=== PATIENT | female | born 1935 | race Caucasian/White ===

== ENCOUNTER 2017-10-31 07:51 | Inpatient (IN) | payer MEDICARE ==
[2017-10-31] VITALS (17 sets, daily range): BP systolic 91–141
[~2017-10-31] VITALS: Ht 157.5 cm; Wt 58.5 kg
[~2017-10-31 07:51] MED LIST: ETOMIDATE 20 MG/ 10 ML VIAL (AMIDATE) IVP ONE; VECURONIUM BROMIDE 10 MG/VIAL (NORCURON) IV ONE
[2017-10-31] MEDS ORDERED: DILTIAZEM HCL 25 MG/5 ML VIAL IVP ONE (08:00)
[2017-10-31] MEDS ORDERED: NS 500 ML IV ONE (08:00)
[2017-10-31] MEDS ORDERED: IPRATROPIUM/ALBUTEROL SULFATE 3 ML AMPUL.NEB INH ONE (08:00)
[2017-10-31] MEDS ORDERED: DILTIAZEM HCL 125 MG/25 ML VIAL IV ONE ×2 (08:07→08:57)
[2017-10-31 08:14] LABS: BASOPHILS # (AUTO) 0.3 K/uL (0.0-0.2); BASOPHILS % (AUTO) 1.5 % (0.0-2.0); EOSINOPHILS # (AUTO) 0.3 K/uL (0.0-0.4); EOSINOPHILS % (AUTO) 1.3 % (0.0-4.0); HEMATOCRIT 39.7 % (36-48); HEMOGLOBIN 13.2 g/dL (12.0-16.0); LYMPHOCYTES % (AUTO) 18.6 % (20.5-51.5); MEAN CORPUSCULAR HEMOGLOBIN 28 pg (27-31); MEAN CORPUSCULAR HGB CONC 33 % (32-36); MEAN CORPUSCULAR VOLUME 85 fL (79.0-98.0); MONOCYTES # (AUTO) 1.4 K/uL (0.0-1.0); MONOCYTES % (AUTO) 6.6 % (1.7-9.3); NEUTROPHILS # (AUTO) 15.2 K/uL (1.8-7.7); RED BLOOD CELL COUNT(AUTO) 4.69 MIL/uL (4.2-6.2); RED CELL DISTRIBUTION WIDTH 13.4 % (9.0-15.0); WHITE BLOOD COUNT (AUTO) 21.3 K/uL (4.8-10.8)
[2017-10-31] MEDS ORDERED: PROPOFOL DRIP 100 ML IV ONE ×2 (08:30→20:14)
[2017-10-31 08:31] LABS: PLATELET COUNT (AUTO) 315 K/uL (130-430)
[2017-10-31] MEDS ORDERED: MAGNESIUM SULFATE 1 GM/2 ML VIAL IVP ONE (08:45)
[2017-10-31] MEDS ORDERED: DILTIAZEM HCL 125 MG in D5W 100 ML IV ONE (08:45)
[2017-10-31] MEDS ORDERED: methylPREDNISolone SOD SUCC/PF 62.5 MG/ML VIAL IVP ONE (08:45)
[2017-10-31 08:46] LABS: PROTHROMBIN TIME 10.3 SECS (9.5-12.5)
[2017-10-31] MEDS ORDERED: MAGNESIUM SULFATE 50 ML IV ONE (08:57)
[2017-10-31 08:58] LABS: ANION GAP 13 (5-15); CALCIUM 8.9 mg/dL (8.4-11.0); CHLORIDE 103 mmol/L (98-107); CREATININE 1.07 mg/dL (0.55-1.30); POTASSIUM 3.6 mmol/L (3.5-5.1); SODIUM SERUM 137 mmol/L (136-145); UREA NITROGEN, BLOOD 22 mg/dL (8-21)
[2017-10-31 09:02] LABS: ALANINE AMINOTRANSFERASE 29 U/L (12-78); ALBUMIN 3.3 g/dL (3.4-4.8); ASPARTATE AMINOTRANSFERASE 20 U/L (10-37); TOTAL BILIRUBIN 0.4 mg/dL (0.0-1.0)
[2017-10-31 09:05] LABS: GLUCOSE 447 mg/dL (70-99)
[2017-10-31] MEDS ORDERED: LORazepam 2 MG/ML VIAL (FOR ER USE) ONE (09:05)
[2017-10-31] MEDS ORDERED: KETAMINE HCL 500 MG/10 ML VIAL ONE (09:11)
[2017-10-31] MEDS ORDERED: NACL 0.9% 1,000 ML IV ONE ×2 (09:15→09:30)
[2017-10-31] MEDS ORDERED: KETAMINE HCL 500 MG/10 ML VIAL IVP ONE (09:15)
[2017-10-31] MEDS ORDERED: LORazepam 2 MG/ML VIAL (FOR ER USE) IVP ONE (09:30)
[2017-10-31] MEDS ORDERED: INSULIN REGULAR, HUMAN 10 UNITS/0.1 ML INJ IVP ONE (09:45)
[2017-10-31] MEDS ORDERED: PIPERACILLIN/TAZOBACTAM 3.375 GM/VIAL (ZOSYN) IV ONE (10:40)
[2017-10-31] MEDS ORDERED: PIPERACILLIN/TAZO 3.375 GM in NS 50 ML IV ONE (10:45)
[2017-10-31] MEDS ORDERED: ENOXAPARIN SODIUM 40 MG/0.4 ML SYRINGE SUBCUT ONE (11:15)
[2017-10-31] MEDS ORDERED: PANTOPRAZOLE SODIUM 40 MG/VIAL (PROTONIX) IVP ONE (11:15)
[2017-10-31] MEDS: AZITHROMYCIN 500 MG in NS 250 ML IV SCH (11:42)
[2017-10-31 12:01] LABS: BILIRUBIN,URINE NEGATIVE (NEGATIVE); BLOOD, URINE NEGATIVE (NEGATIVE); CLARITY/URINE HAZY (CLEAR); COLOR,URINE YELLOW (YELLOW); GLUCOSE,URINE 3+ (NEGATIVE); KETONES,URINE NEGATIVE (NEGATIVE); LEUKOCYTE ESTERASE ,URINE NEGATIVE (NEGATIVE); NITRITE, URINE NEGATIVE (NEGATIVE); PH,URINE 6.5 (5.0-8.0); PROTEIN URINE 2+ (NEGATIVE)
[2017-10-31] MEDS: IPRATROPIUM BROM 0.5 MG/2.5 ML VIAL.NEB (ATROVENT) INH SCH ×2 (12:03→19:36)
[2017-10-31] MEDS: LevALBUTEROL HCL 1.25 MG/0.5 ML *CONC.* VIAL.NEB (XOPENEX CONC.) INH SCH ×2 (12:03→19:36)
[2017-10-31 12:11] LABS: BACTERIA,URINE MODERATE /HPF (None Seen); RBC,URINE 0-3 /HPF (0-3); WBC,URINE 0-3 /HPF (0-3)
[2017-10-31 12:12] LABS: MUCUS,URINE 1+ /LPF (None Seen)
[2017-10-31] MEDS ORDERED: NOREPINEPHRINE BITARTRATE 4 MG in NS 246 ML IV PRN (13:00)
[2017-10-31] MEDS ORDERED: SODIUM BICARBONATE 8.4% JECT 50 MEQ/50 ML SYRINGE IVP ONE (13:15)
[2017-10-31] MEDS: NACL 0.9% 1,000 ML IV SCH ×2 (13:31→23:01)
[2017-10-31] MEDS: methylPREDNISolone SOD SUCC/PF 62.5 MG/ML VIAL IVP SCH ×2 (14:19→21:33)
[2017-10-31] MEDS: LORazepam 2 MG/ML VIAL IVP PRN ×3 (16:01→23:47)
[2017-10-31] MEDS: INSULIN REGULAR, HUMAN 100 UNITS/ML, 10 ML VIAL (novoLIN R) SUBCUT PRN ×2 (17:24→20:48)
[2017-10-31] MEDS: PIPERACILLIN/TAZO 3.375/DEX-IS 50 ML IV SCH ×2 (17:58→23:02)
[2017-10-31] MEDS ORDERED: FUROSEMIDE 20 MG/2 ML VIAL IVP ONE (20:15)
[2017-10-31] MEDS: PROPOFOL DRIP 100 ML IV PRN (23:11)
[2017-11-01] VITALS (29 sets, daily range): BP systolic 84–147
[2017-11-01] MEDS ORDERED: DILTIAZEM HCL 25 MG/5 ML VIAL IVP SCH
[2017-11-01] MEDS: LevALBUTEROL HCL 1.25 MG/0.5 ML *CONC.* VIAL.NEB (XOPENEX CONC.) INH SCH ×4 (00:51→19:44)
[2017-11-01] MEDS: IPRATROPIUM BROM 0.5 MG/2.5 ML VIAL.NEB (ATROVENT) INH SCH ×4 (00:51→19:45)
[2017-11-01] MEDS ORDERED: CALC-439 PO (01:37)
[2017-11-01] MEDS ORDERED: LIP40 PO (01:37)
[2017-11-01] MEDS ORDERED: ALBMDI INH (01:37)
[2017-11-01] MEDS ORDERED: MELA3TAB37 PO (01:37)
[2017-11-01] MEDS ORDERED: CICL34.62 TP (01:37)
[2017-11-01] MEDS ORDERED: LOSA25TA3 PO ×2 (01:37→10:43)
[2017-11-01] MEDS ORDERED: HYDR25TA4 PO ×2 (01:37→10:43)
[2017-11-01] MEDS ORDERED: ASPI325T2 PO ×2 (01:37→10:43)
[2017-11-01] MEDS: PROPOFOL DRIP 100 ML IV PRN ×4 (03:54→23:09)
[2017-11-01] MEDS: LORazepam 2 MG/ML VIAL IVP PRN ×3 (05:13→10:43)
[2017-11-01] MEDS: methylPREDNISolone SOD SUCC/PF 62.5 MG/ML VIAL IVP SCH ×3 (05:14→22:15)
[2017-11-01] MEDS: PIPERACILLIN/TAZO 3.375/DEX-IS 50 ML IV SCH ×4 (05:14→23:05)
[2017-11-01] MEDS: INSULIN REGULAR, HUMAN 100 UNITS/ML, 10 ML VIAL (novoLIN R) SUBCUT PRN ×4 (05:24→20:56)
[2017-11-01 06:50] LABS: ALANINE AMINOTRANSFERASE 29 U/L (12-78); ALBUMIN 2.7 g/dL (3.4-4.8); ANION GAP 10 (5-15); ASPARTATE AMINOTRANSFERASE 19 U/L (10-37); CALCIUM 7.9 mg/dL (8.4-11.0); CHLORIDE 106 mmol/L (98-107); CREATININE 0.77 mg/dL (0.55-1.30); GLUCOSE 181 mg/dL (70-99); POTASSIUM 3.2 mmol/L (3.5-5.1); SODIUM SERUM 140 mmol/L (136-145); TOTAL BILIRUBIN 0.4 mg/dL (0.0-1.0); UREA NITROGEN, BLOOD 24 mg/dL (8-21)
[2017-11-01 06:53] LABS: HEMATOCRIT 31.9 % (36-48); HEMOGLOBIN 10.9 g/dL (12.0-16.0); LYMPHOCYTES # (AUTO) 1.2 K/uL (1.0-5.5); LYMPHOCYTES % (AUTO) 6.7 % (20.5-51.5); MEAN CORPUSCULAR HEMOGLOBIN 29 pg (27-31); MEAN CORPUSCULAR HGB CONC 34 % (32-36); MEAN CORPUSCULAR VOLUME 85 fL (79.0-98.0); MONOCYTES # (AUTO) 0.6 K/uL (0.0-1.0); MONOCYTES % (AUTO) 3.2 % (1.7-9.3); NEUTROPHILS # (AUTO) 16.4 K/uL (1.8-7.7); NEUTROPHILS % (AUTO) 90.1 % (40.0-70.0); PLATELET COUNT (AUTO) 204 K/uL (130-430); RED BLOOD CELL COUNT(AUTO) 3.76 MIL/uL (4.2-6.2); RED CELL DISTRIBUTION WIDTH 13.7 % (9.0-15.0); WHITE BLOOD COUNT (AUTO) 18.2 K/uL (4.8-10.8)
[2017-11-01] MEDS: ENOXAPARIN SODIUM 40 MG/0.4 ML SYRINGE SUBCUT SCH (08:36)
[2017-11-01] MEDS: NACL 0.9% 1,000 ML IV SCH (08:36)
[2017-11-01] MEDS: PANTOPRAZOLE SODIUM 40 MG/VIAL (PROTONIX) IVP SCH (08:37)
[2017-11-01] MEDS ORDERED: AMIODARONE HCL 200 MG TABLET PO SCH (09:00)
[2017-11-01] MEDS ORDERED: FUROSEMIDE 40 MG/4 ML VIAL IVP ONE (09:45)
[2017-11-01] MEDS ORDERED: POTASSIUM CHLORIDE 20 MEQ/PKT PACKET NG ONE (09:45)
[2017-11-01] MEDS ORDERED: CALC260T7 PO (10:43)
[2017-11-01] MEDS ORDERED: MULT PO (10:43)
[2017-11-01] MEDS: 0.45% NACL 1,000 ML IV SCH (11:14)
[2017-11-01] MEDS: AZITHROMYCIN 500 MG in NS 250 ML IV SCH (12:58)
[2017-11-01] MEDS: DILTIAZEM HCL 25 MG/5 ML VIAL IVP PRN ×2 (15:40→20:52)
[2017-11-01] MEDS ORDERED: AMIODARONE HCL 900 MG in D5W 482 ML IV SCH (16:15)
[2017-11-01] MEDS ORDERED: APIXABAN 2.5 MG TABLET PO ONE (17:00)
[2017-11-02] VITALS (32 sets, daily range): BP systolic 84–147
[2017-11-02] MEDS: IPRATROPIUM BROM 0.5 MG/2.5 ML VIAL.NEB (ATROVENT) INH SCH ×4 (00:54→19:15)
[2017-11-02] MEDS: LevALBUTEROL HCL 1.25 MG/0.5 ML *CONC.* VIAL.NEB (XOPENEX CONC.) INH SCH ×4 (00:54→19:15)
[2017-11-02] MEDS: 0.45% NACL 1,000 ML IV SCH ×3 (01:57→20:25)
[2017-11-02] MEDS: LORazepam 2 MG/ML VIAL IVP PRN ×4 (03:33→17:56)
[2017-11-02] MEDS: PROPOFOL DRIP 100 ML IV PRN ×2 (04:51→18:32)
[2017-11-02 05:53] LABS: BASOPHILS % (AUTO) 0.1 % (0.0-2.0); HEMATOCRIT 31.1 % (36-48); HEMOGLOBIN 10.4 g/dL (12.0-16.0); LYMPHOCYTES # (AUTO) 0.7 K/uL (1.0-5.5); LYMPHOCYTES % (AUTO) 3.5 % (20.5-51.5); MEAN CORPUSCULAR HEMOGLOBIN 29 pg (27-31); MEAN CORPUSCULAR HGB CONC 34 % (32-36); MEAN CORPUSCULAR VOLUME 85 fL (79.0-98.0); MONOCYTES # (AUTO) 0.6 K/uL (0.0-1.0); MONOCYTES % (AUTO) 2.9 % (1.7-9.3); NEUTROPHILS # (AUTO) 19.1 K/uL (1.8-7.7); NEUTROPHILS % (AUTO) 93.5 % (40.0-70.0); PLATELET COUNT (AUTO) 212 K/uL (130-430); RED BLOOD CELL COUNT(AUTO) 3.66 MIL/uL (4.2-6.2); RED CELL DISTRIBUTION WIDTH 14.2 % (9.0-15.0)
[2017-11-02 06:03] LABS: ANION GAP 9 (5-15); CHLORIDE 105 mmol/L (98-107); GLUCOSE 232 mg/dL (70-99); SODIUM SERUM 137 mmol/L (136-145); UREA NITROGEN, BLOOD 27 mg/dL (8-21)
[2017-11-02 06:11] LABS: ALANINE AMINOTRANSFERASE 26 U/L (12-78); ALBUMIN 2.6 g/dL (3.4-4.8); ASPARTATE AMINOTRANSFERASE 15 U/L (10-37); TOTAL BILIRUBIN 0.3 mg/dL (0.0-1.0)
[2017-11-02] MEDS: PIPERACILLIN/TAZO 3.375/DEX-IS 50 ML IV SCH ×4 (06:15→23:41)
[2017-11-02] MEDS: methylPREDNISolone SOD SUCC/PF 62.5 MG/ML VIAL IVP SCH ×3 (06:15→21:30)
[2017-11-02] MEDS: INSULIN REGULAR, HUMAN 100 UNITS/ML, 10 ML VIAL (novoLIN R) SUBCUT PRN ×4 (06:24→21:02)
[2017-11-02 06:53] LABS: WHITE BLOOD COUNT (AUTO) 20.4 K/uL (4.8-10.8)
[2017-11-02] MEDS: APIXABAN 2.5 MG TABLET PO SCH ×2 (07:59→20:14)
[2017-11-02] MEDS: ENOXAPARIN SODIUM 40 MG/0.4 ML SYRINGE SUBCUT SCH (07:59)
[2017-11-02] MEDS: PANTOPRAZOLE SODIUM 40 MG/VIAL (PROTONIX) IVP SCH (07:59)
[2017-11-02] MEDS ORDERED: KCL 20 mEq in 100 mL (PREMIX) 100 ML IV ONE (09:30)
[2017-11-02] MEDS ORDERED: FUROSEMIDE 40 MG/4 ML VIAL IVP ONE (09:45)
[2017-11-02] MEDS ORDERED: FUROSEMIDE 40 MG/4 ML VIAL ONE (09:50)
[2017-11-02] MEDS: AZITHROMYCIN 500 MG in NS 250 ML IV SCH (11:35)
[2017-11-02] MEDS ORDERED: AMIODARONE HCL 200 MG TABLET PO ONE (16:00)
[2017-11-02] MEDS: DILTIAZEM HCL 25 MG/5 ML VIAL IVP PRN (18:54)
[2017-11-02] MEDS ORDERED: AMIODARONE HCL 200 MG TABLET NG ONE (20:15)
[2017-11-02] MEDS ORDERED: AMIODARONE HCL 900 MG in D5W 482 ML IV SCH (21:15)
[2017-11-02] MEDS ORDERED: AMIODARONE HCL 900 MG/18 ML VIAL IV ONE (21:27)
[2017-11-03] VITALS (26 sets, daily range): BP systolic 88–143
[2017-11-03] MEDS: LevALBUTEROL HCL 1.25 MG/0.5 ML *CONC.* VIAL.NEB (XOPENEX CONC.) INH SCH ×4 (00:36→19:58)
[2017-11-03] MEDS: IPRATROPIUM BROM 0.5 MG/2.5 ML VIAL.NEB (ATROVENT) INH SCH ×4 (00:36→19:58)
[2017-11-03] MEDS: PROPOFOL DRIP 100 ML IV PRN (03:22)
[2017-11-03 06:03] LABS: BASOPHILS % (AUTO) 0.1 % (0.0-2.0); HEMATOCRIT 28.2 % (36-48); HEMOGLOBIN 9.3 g/dL (12.0-16.0); LYMPHOCYTES # (AUTO) 0.9 K/uL (1.0-5.5); LYMPHOCYTES % (AUTO) 4.3 % (20.5-51.5); MEAN CORPUSCULAR HEMOGLOBIN 28 pg (27-31); MEAN CORPUSCULAR HGB CONC 33 % (32-36); MEAN CORPUSCULAR VOLUME 85 fL (79.0-98.0); MONOCYTES % (AUTO) 4.7 % (1.7-9.3); NEUTROPHILS # (AUTO) 19.6 K/uL (1.8-7.7); PLATELET COUNT (AUTO) 222 K/uL (130-430); RED BLOOD CELL COUNT(AUTO) 3.33 MIL/uL (4.2-6.2); RED CELL DISTRIBUTION WIDTH 14.5 % (9.0-15.0); WHITE BLOOD COUNT (AUTO) 21.5 K/uL (4.8-10.8)
[2017-11-03] MEDS: PIPERACILLIN/TAZO 3.375/DEX-IS 50 ML IV SCH ×3 (06:20→18:00)
[2017-11-03] MEDS: methylPREDNISolone SOD SUCC/PF 62.5 MG/ML VIAL IVP SCH (06:21)
[2017-11-03] MEDS: INSULIN REGULAR, HUMAN 100 UNITS/ML, 10 ML VIAL (novoLIN R) SUBCUT PRN ×4 (06:22→20:50)
[2017-11-03 06:52] LABS: ANION GAP 11 (5-15); CALCIUM 8.3 mg/dL (8.4-11.0); CHLORIDE 104 mmol/L (98-107); CREATININE 0.85 mg/dL (0.55-1.30); GLUCOSE 230 mg/dL (70-99); POTASSIUM 3.5 mmol/L (3.5-5.1); SODIUM SERUM 139 mmol/L (136-145); UREA NITROGEN, BLOOD 31 mg/dL (8-21)
[2017-11-03 06:58] LABS: ALANINE AMINOTRANSFERASE 24 U/L (12-78); ALBUMIN 2.7 g/dL (3.4-4.8); ASPARTATE AMINOTRANSFERASE 14 U/L (10-37); TOTAL BILIRUBIN 0.5 mg/dL (0.0-1.0)
[2017-11-03] MEDS ORDERED: FUROSEMIDE 40 MG/4 ML VIAL IVP ONE (09:15)
[2017-11-03] MEDS ORDERED: POTASSIUM CHLORIDE 20 MEQ TAB.PRT.SR PO ONE (09:15)
[2017-11-03] MEDS: AMIODARONE HCL 200 MG TABLET PO SCH ×2 (09:29→20:46)
[2017-11-03] MEDS: PANTOPRAZOLE SODIUM 40 MG/VIAL (PROTONIX) IVP SCH (09:30)
[2017-11-03] MEDS: ENOXAPARIN SODIUM 40 MG/0.4 ML SYRINGE SUBCUT SCH (09:30)
[2017-11-03] MEDS: APIXABAN 2.5 MG TABLET PO SCH ×2 (09:30→20:45)
[2017-11-03] MEDS ORDERED: DILTIAZEM HCL 25 MG/5 ML VIAL IVP ONE (10:45)
[2017-11-03] MEDS: AZITHROMYCIN 500 MG in NS 250 ML IV SCH (11:34)
[2017-11-03] MEDS: LORazepam 2 MG/ML VIAL IVP PRN ×2 (11:52→20:57)
[2017-11-03 12:35] LABS: NEUTROPHILS % (AUTO) 90.9 % (40.0-70.0)
[2017-11-03] MEDS: DILTIAZEM HCL 125 MG in D5W 100 ML IV SCH (13:24)
[2017-11-03] MEDS: methylPREDNISolone SOD SUCC 40 MG/ML VIAL IVP SCH ×2 (17:06→22:11)
[2017-11-03] MEDS: 0.45% NACL 1,000 ML IV SCH (18:00)
[2017-11-03] MEDS ORDERED: DILTIAZEM HCL 125 MG/25 ML VIAL IV ONE (23:56)
[2017-11-04] VITALS (24 sets, daily range): BP systolic 100–143
[2017-11-04] MEDS: IPRATROPIUM BROM 0.5 MG/2.5 ML VIAL.NEB (ATROVENT) INH SCH ×4 (01:00→19:54)
[2017-11-04] MEDS: LevALBUTEROL HCL 1.25 MG/0.5 ML *CONC.* VIAL.NEB (XOPENEX CONC.) INH SCH ×4 (01:00→19:54)
[2017-11-04] MEDS: LORazepam 2 MG/ML VIAL IVP PRN ×2 (02:08→03:38)
[2017-11-04] MEDS: 0.45% NACL 1,000 ML IV SCH ×3 (04:28→23:06)
[2017-11-04] MEDS: methylPREDNISolone SOD SUCC 40 MG/ML VIAL IVP SCH ×3 (06:08→21:10)
[2017-11-04] MEDS: PIPERACILLIN/TAZO 3.375/DEX-IS 50 ML IV SCH ×5 (06:08→23:07)
[2017-11-04] MEDS: INSULIN REGULAR, HUMAN 100 UNITS/ML, 10 ML VIAL (novoLIN R) SUBCUT PRN ×3 (06:13→21:16)
[2017-11-04 06:34] LABS: ANION GAP 5 (5-15); CALCIUM 8.2 mg/dL (8.4-11.0); CHLORIDE 108 mmol/L (98-107); CREATININE 0.78 mg/dL (0.55-1.30); GLUCOSE 202 mg/dL (70-99); POTASSIUM 3.4 mmol/L (3.5-5.1); SODIUM SERUM 140 mmol/L (136-145); UREA NITROGEN, BLOOD 31 mg/dL (8-21)
[2017-11-04 09:20] LABS: BASOPHILS # (AUTO) 0.2 K/uL (0.0-0.2); EOSINOPHILS # (AUTO) 0.1 K/uL (0.0-0.4); EOSINOPHILS % (AUTO) 0.3 % (0.0-4.0); HEMATOCRIT 23.6 % (36-48); HEMOGLOBIN 7.7 g/dL (12.0-16.0); LYMPHOCYTES # (AUTO) 1.3 K/uL (1.0-5.5); MEAN CORPUSCULAR HEMOGLOBIN 27 pg (27-31); MEAN CORPUSCULAR HGB CONC 33 % (32-36); MEAN CORPUSCULAR VOLUME 84 fL (79.0-98.0); MONOCYTES # (AUTO) 1.1 K/uL (0.0-1.0); MONOCYTES % (AUTO) 5.3 % (1.7-9.3); NEUTROPHILS # (AUTO) 18.8 K/uL (1.8-7.7); PLATELET COUNT (AUTO) 188 K/uL (130-430); RED BLOOD CELL COUNT(AUTO) 2.81 MIL/uL (4.2-6.2); RED CELL DISTRIBUTION WIDTH 14.6 % (9.0-15.0); WHITE BLOOD COUNT (AUTO) 21.5 K/uL (4.8-10.8)
[2017-11-04] MEDS: PANTOPRAZOLE SODIUM 40 MG/VIAL (PROTONIX) IVP SCH (09:25)
[2017-11-04] MEDS: APIXABAN 2.5 MG TABLET PO SCH ×2 (09:25→21:11)
[2017-11-04] MEDS: AMIODARONE HCL 200 MG TABLET PO SCH ×2 (09:26→21:11)
[2017-11-04 09:54] LABS: NEUTROPHILS % (AUTO) 87.4 % (40.0-70.0)
[2017-11-04] MEDS: AZITHROMYCIN 500 MG in NS 250 ML IV SCH (13:04)
[2017-11-04] MEDS: DILTIAZEM HCL 125 MG in D5W 100 ML IV SCH ×4 (13:08→21:12)
[2017-11-04] MEDS ORDERED: POTASSIUM CHLORIDE 20 MEQ TAB.PRT.SR PO ONE (14:00)
[2017-11-04 14:23] LABS: BASOPHILS # (AUTO) 0.1 K/uL (0.0-0.2); BASOPHILS % (AUTO) 0.8 % (0.0-2.0); HEMATOCRIT 22.3 % (36-48); HEMOGLOBIN 7.5 g/dL (12.0-16.0); LYMPHOCYTES # (AUTO) 0.8 K/uL (1.0-5.5); LYMPHOCYTES % (AUTO) 4.7 % (20.5-51.5); MEAN CORPUSCULAR HEMOGLOBIN 28 pg (27-31); MEAN CORPUSCULAR HGB CONC 34 % (32-36); MEAN CORPUSCULAR VOLUME 83 fL (79.0-98.0); MONOCYTES # (AUTO) 1.1 K/uL (0.0-1.0); MONOCYTES % (AUTO) 6.4 % (1.7-9.3); NEUTROPHILS # (AUTO) 14.9 K/uL (1.8-7.7); NEUTROPHILS % (AUTO) 88.1 % (40.0-70.0); PLATELET COUNT (AUTO) 192 K/uL (130-430); RED BLOOD CELL COUNT(AUTO) 2.68 MIL/uL (4.2-6.2); RED CELL DISTRIBUTION WIDTH 13.8 % (9.0-15.0); WHITE BLOOD COUNT (AUTO) 16.9 K/uL (4.8-10.8)
[2017-11-05] VITALS (24 sets, daily range): BP systolic 103–153
[2017-11-05] MEDS: DILTIAZEM HCL 25 MG/5 ML VIAL IVP PRN (00:41)
[2017-11-05] MEDS: LevALBUTEROL HCL 1.25 MG/0.5 ML *CONC.* VIAL.NEB (XOPENEX CONC.) INH SCH ×4 (01:00→19:59)
[2017-11-05] MEDS: IPRATROPIUM BROM 0.5 MG/2.5 ML VIAL.NEB (ATROVENT) INH SCH ×4 (01:00→19:59)
[2017-11-05] MEDS: methylPREDNISolone SOD SUCC 40 MG/ML VIAL IVP SCH ×3 (05:32→21:09)
[2017-11-05] MEDS: PIPERACILLIN/TAZO 3.375/DEX-IS 50 ML IV SCH ×5 (05:32→23:47)
[2017-11-05] MEDS: DILTIAZEM HCL 125 MG in D5W 100 ML IV SCH ×2 (05:44→17:03)
[2017-11-05] MEDS: INSULIN REGULAR, HUMAN 100 UNITS/ML, 10 ML VIAL (novoLIN R) SUBCUT PRN ×4 (06:09→21:17)
[2017-11-05 06:15] LABS: ANION GAP 7 (5-15); CALCIUM 8.3 mg/dL (8.4-11.0); CHLORIDE 107 mmol/L (98-107); CREATININE 0.65 mg/dL (0.55-1.30); GLUCOSE 229 mg/dL (70-99); POTASSIUM 3.9 mmol/L (3.5-5.1); SODIUM SERUM 140 mmol/L (136-145); UREA NITROGEN, BLOOD 25 mg/dL (8-21)
[2017-11-05 06:24] LABS: LYMPHOCYTES % (AUTO) 5.4 % (20.5-51.5); MEAN CORPUSCULAR HEMOGLOBIN 27 pg (27-31); MEAN CORPUSCULAR HGB CONC 32 % (32-36); MEAN CORPUSCULAR VOLUME 85 fL (79.0-98.0); MONOCYTES # (AUTO) 1.3 K/uL (0.0-1.0); MONOCYTES % (AUTO) 7.1 % (1.7-9.3); NEUTROPHILS # (AUTO) 15.6 K/uL (1.8-7.7); PLATELET COUNT (AUTO) 233 K/uL (130-430); RED BLOOD CELL COUNT(AUTO) 2.51 MIL/uL (4.2-6.2); RED CELL DISTRIBUTION WIDTH 14.4 % (9.0-15.0); WHITE BLOOD COUNT (AUTO) 17.9 K/uL (4.8-10.8)
[2017-11-05 07:42] LABS: HEMATOCRIT 21.3 % (36-48); HEMOGLOBIN 6.9 g/dL (12.0-16.0)
[2017-11-05] MEDS: PANTOPRAZOLE SODIUM 40 MG/VIAL (PROTONIX) IVP SCH (08:35)
[2017-11-05] MEDS: AMIODARONE HCL 200 MG TABLET PO SCH ×2 (08:36→21:09)
[2017-11-05] MEDS: APIXABAN 2.5 MG TABLET PO SCH (08:40)
[2017-11-05 10:02] LABS: NEUTROPHILS % (AUTO) 87.5 % (40.0-70.0)
[2017-11-05] MEDS ORDERED: NACL 0.9% 1,000 ML IV SCH (11:00)
[2017-11-05] MEDS ORDERED: COMMUNICATION ORDER XX ONE (11:30)
[2017-11-05] MEDS: AZITHROMYCIN 500 MG in NS 250 ML IV SCH (13:36)
[2017-11-05 13:50] LABS: INR 1.1 (0.8-1.2); PROTHROMBIN TIME 11.4 SECS (9.5-12.5)
[2017-11-05] MEDS: TEMAZEPAM 7.5 MG CAPSULE PO PRN (21:57)
[2017-11-06] VITALS (25 sets, daily range): BP systolic 117–183
[2017-11-06] MEDS: LevALBUTEROL HCL 1.25 MG/0.5 ML *CONC.* VIAL.NEB (XOPENEX CONC.) INH SCH ×4 (01:00→19:50)
[2017-11-06] MEDS: IPRATROPIUM BROM 0.5 MG/2.5 ML VIAL.NEB (ATROVENT) INH SCH ×4 (01:00→19:50)
[2017-11-06] MEDS: DILTIAZEM HCL 125 MG in D5W 100 ML IV SCH (01:26)
[2017-11-06] MEDS: IPRATROPIUM BROM 0.5 MG/2.5 ML VIAL.NEB (ATROVENT) INH PRN ×2 (02:22→03:12)
[2017-11-06] MEDS: LevALBUTEROL HCL 1.25 MG/0.5 ML *CONC.* VIAL.NEB (XOPENEX CONC.) INH PRN ×2 (02:22→03:12)
[2017-11-06] MEDS ORDERED: FUROSEMIDE 40 MG/4 ML VIAL IVP ONE (04:45)
[2017-11-06] MEDS ORDERED: FUROSEMIDE 40 MG/4 ML VIAL ONE (04:50)
[2017-11-06] MEDS: PIPERACILLIN/TAZO 3.375/DEX-IS 50 ML IV SCH ×4 (06:04→23:23)
[2017-11-06] MEDS: DILTIAZEM HCL 25 MG/5 ML VIAL IVP PRN (06:05)
[2017-11-06] MEDS: methylPREDNISolone SOD SUCC 40 MG/ML VIAL IVP SCH ×3 (06:10→21:02)
[2017-11-06] MEDS: INSULIN REGULAR, HUMAN 100 UNITS/ML, 10 ML VIAL (novoLIN R) SUBCUT PRN ×4 (06:11→20:56)
[2017-11-06 06:41] LABS: ALANINE AMINOTRANSFERASE 30 U/L (12-78); ALBUMIN 2.9 g/dL (3.4-4.8); ANION GAP 7 (5-15); ASPARTATE AMINOTRANSFERASE 15 U/L (10-37); CALCIUM 8.8 mg/dL (8.4-11.0); CHLORIDE 107 mmol/L (98-107); GLUCOSE 265 mg/dL (70-99); POTASSIUM 3.7 mmol/L (3.5-5.1); SODIUM SERUM 138 mmol/L (136-145); TOTAL BILIRUBIN 1.2 mg/dL (0.0-1.0); UREA NITROGEN, BLOOD 27 mg/dL (8-21)
[2017-11-06 06:49] LABS: BASOPHILS % (AUTO) 0.1 % (0.0-2.0); HEMATOCRIT 30.4 % (36-48); HEMOGLOBIN 9.7 g/dL (12.0-16.0); LYMPHOCYTES # (AUTO) 0.7 K/uL (1.0-5.5); LYMPHOCYTES % (AUTO) 3.9 % (20.5-51.5); MEAN CORPUSCULAR HEMOGLOBIN 28 pg (27-31); MEAN CORPUSCULAR HGB CONC 32 % (32-36); MEAN CORPUSCULAR VOLUME 86 fL (79.0-98.0); MONOCYTES # (AUTO) 1.5 K/uL (0.0-1.0); NEUTROPHILS # (AUTO) 16.6 K/uL (1.8-7.7); PLATELET COUNT (AUTO) 233 K/uL (130-430); RED BLOOD CELL COUNT(AUTO) 3.53 MIL/uL (4.2-6.2); RED CELL DISTRIBUTION WIDTH 14.3 % (9.0-15.0); WHITE BLOOD COUNT (AUTO) 18.8 K/uL (4.8-10.8)
[2017-11-06] MEDS: PANTOPRAZOLE SODIUM 40 MG/VIAL (PROTONIX) IVP SCH (08:07)
[2017-11-06] MEDS: AMIODARONE HCL 200 MG TABLET PO SCH ×3 (08:07→20:50)
[2017-11-06] MEDS ORDERED: DILTIAZEM HCL 180 MG CAP.SR.24H PO ONE (12:15)
[2017-11-06] MEDS: AZITHROMYCIN 500 MG in NS 250 ML IV SCH (12:49)
[2017-11-06] MEDS ORDERED: AMIODARONE HCL 200 MG TABLET PO ONE (13:00)
[2017-11-06] MEDS: DILTIAZEM HCL 180 MG CAP.SR.24H PO SCH (20:52)
[2017-11-06] MEDS: TEMAZEPAM 7.5 MG CAPSULE PO PRN (22:18)
[2017-11-06] MEDS: LORazepam 2 MG/ML VIAL IVP PRN (22:25)
[2017-11-07] VITALS (22 sets, daily range): BP systolic 99–166
[2017-11-07] MEDS: LevALBUTEROL HCL 1.25 MG/0.5 ML *CONC.* VIAL.NEB (XOPENEX CONC.) INH SCH ×4 (01:00→19:00)
[2017-11-07] MEDS: IPRATROPIUM BROM 0.5 MG/2.5 ML VIAL.NEB (ATROVENT) INH SCH ×4 (01:00→19:00)
[2017-11-07] MEDS: methylPREDNISolone SOD SUCC 40 MG/ML VIAL IVP SCH (05:22)
[2017-11-07] MEDS: PIPERACILLIN/TAZO 3.375/DEX-IS 50 ML IV SCH (05:24)
[2017-11-07] MEDS: INSULIN REGULAR, HUMAN 100 UNITS/ML, 10 ML VIAL (novoLIN R) SUBCUT PRN ×4 (06:14→20:37)
[2017-11-07 07:11] LABS: ALANINE AMINOTRANSFERASE 28 U/L (12-78); ALBUMIN 2.5 g/dL (3.4-4.8); ANION GAP 5 (5-15); ASPARTATE AMINOTRANSFERASE 14 U/L (10-37); CALCIUM 8.5 mg/dL (8.4-11.0); CHLORIDE 106 mmol/L (98-107); CREATININE 0.61 mg/dL (0.55-1.30); GLUCOSE 222 mg/dL (70-99); POTASSIUM 3.6 mmol/L (3.5-5.1); SODIUM SERUM 139 mmol/L (136-145); TOTAL BILIRUBIN 1.1 mg/dL (0.0-1.0); UREA NITROGEN, BLOOD 26 mg/dL (8-21)
[2017-11-07] MEDS: PANTOPRAZOLE SODIUM 40 MG/VIAL (PROTONIX) IVP SCH (08:40)
[2017-11-07] MEDS: AMIODARONE HCL 200 MG TABLET PO SCH ×2 (08:40→20:27)
[2017-11-07] MEDS: DILTIAZEM HCL 180 MG CAP.SR.24H PO SCH ×2 (08:41→20:33)
[2017-11-07] MEDS: AZITHROMYCIN 500 MG in NS 250 ML IV SCH (11:39)
[2017-11-07] MEDS ORDERED: methylPREDNISolone SOD SUCC 40 MG/ML VIAL IVP SCH (21:00)
== END 2017-11-07 21:55 | disposition short-term general hospital (02) | DRG 871 ==
LOC: SED 07:51 → SIC 10:35
PROVIDERS: ADMIT Internal Medicine Hospice and Palliative Medicine; ATTEND Internal Medicine Hospice and Palliative Medicine
PROC: 5A1945Z Respiratory Ventilation, 24-96 Consecutive Hours (ICD-10-PCS; principal; 2017-10-31)
PROC: 0BH17EZ Insertion of Endotracheal Airway into Trachea, Via Natural or Artificial Opening (ICD-10-PCS; 2017-10-31)
PROC: 30233N1 Transfusion of Nonautologous Red Blood Cells into Peripheral Vein, Percutaneous Approach (ICD-10-PCS; 2017-11-05)
DX: A41.9 Sepsis, unspecified organism (principal); J96.00 Acute respiratory failure, unspecified whether with hypoxia or hypercapnia; I21.A1 Myocardial infarction type 2; I50.31 Acute diastolic (congestive) heart failure; J18.9 Pneumonia, unspecified organism; I11.0 Hypertensive heart disease with heart failure; I48.91 Unspecified atrial fibrillation; I47.1 Supraventricular tachycardia; I48.0 Paroxysmal atrial fibrillation; E11.9 Type 2 diabetes mellitus without complications; D64.9 Anemia, unspecified; J44.0 Chronic obstructive pulmonary disease with (acute) lower respiratory infection; J44.1 Chronic obstructive pulmonary disease with (acute) exacerbation; N39.0 Urinary tract infection, site not specified; R91.8 Other nonspecific abnormal finding of lung field; E87.6 Hypokalemia; Z88.5 Allergy status to narcotic agent
CPT/HCPCS: 36415; 36600; 71045; 71250-TC; 80048; 80053; 81000-TC; 82803-TC; 82962; 83605; 83880; 84443-TC; 84484; 85025; 85610-TC; 85730-TC; 86886; 86900; 86901; 86920; 87040-TC; 87070-TC; 87081; 87086; 87205-TC; 93005; 93306; 94002; 94003; 94640; 96361; 96365; 96367; 96375; 99291; C1751; C9113; J0282; J0456; J1030; J1650; J1815; J1940; J2060; J2543; J2704; J2930; J3475; J3480; J3490; J7030; J7040; J7050; J7060; J7612; P9021